=== PATIENT | female | born 2000 | race Caucasian/White ===

== ENCOUNTER 2018-05-28 11:04 | Day surgery (SDC) | payer OTHER ==
[~2018-05-28] VITALS: Ht 177.8 cm; Wt 116.1 kg
[2018-05-28 11:15] LABS: HCG,QUAL RESULT NEGATIVE (NEGATIVE)
[2018-05-28] MEDS ORDERED: LR 1,000 ML IV SCH (14:23)
[2018-05-28] MEDS ORDERED: METOCLOPRAMIDE HCL 10 MG/2 ML VIAL IVP PRN (14:30)
[2018-05-28] MEDS ORDERED: MORPHINE 4 MG/ML INJ. SYRINGE IVP PRN ×3 (14:30)
[2018-05-28] MEDS ORDERED: ONDANSETRON HCL 4 MG/2 ML VIAL IVP PRN (14:45)
[2018-05-28] MEDS ORDERED: OXYCODONE/ACETAMINOPHEN 5-325 TABLET PO PRN (14:45)
[2018-05-28] MEDS ORDERED: KETOROLAC TROMETHAMINE 30 MG VIAL ONE (14:50)
[2018-05-28] MEDS ORDERED: fentaNYL CITRATE/PF 100 MCG/2 ML AMP ONE (14:50)
[2018-05-28] MEDS ORDERED: MIDAZOLAM HCL 5 MG/ML VIAL (VERSED) IV ONE (14:50)
[2018-05-28] MEDS ORDERED: PROPOFOL 200MG/ 20ML VIAL (DIPRIVAN) IV ONE (14:50)
[2018-05-28] MEDS ORDERED: NS IRRIG SOLN 5000 ML IR ONE (14:50)
[2018-05-28] MEDS ORDERED: SEVOFLURANE 15 MIN GAS INH ONE (14:50)
[2018-05-28] MEDS ORDERED: LR 1,000 ML IV.SOLN IV ONE (14:50)
[2018-05-28 15:25] VITALS: BP_SYST 130
[2018-05-28] MEDS ORDERED: PROMETHAZINE HCL 25 MG/ML AMP IM PRN ×2 (17:30)
[2018-05-28] MEDS ORDERED: HYDROmorphone 2 MG TAB PO PRN (17:30)
[2018-05-28] MEDS ORDERED: KETOROLAC TROMETHAMINE 30 MG VIAL IVP SCH (18:00)
== END 2018-05-28 16:10 | disposition home or self-care (01) ==
LOC: SDS 11:04 → SMU 11:06 → SDS 16:10
PROVIDERS: ATTEND Obstetrics & Gynecology
DX: N84.0 Polyp of corpus uteri (principal); F15.90 Other stimulant use, unspecified, uncomplicated; E66.01 Morbid (severe) obesity due to excess calories; Z79.890 Hormone replacement therapy; Z83.3 Family history of diabetes mellitus; Z82.49 Family history of ischemic heart disease and other diseases of the circulatory system; Z80.8 Family history of malignant neoplasm of other organs or systems
CPT/HCPCS: 36415; 58558; 84703; 86886; 86900; 86901; 88305; C1819; J1885; J2250; J2704; J3010; J7120